=== PATIENT | male | born 1970 | race Caucasian/White ===

== ENCOUNTER 2021-02-19 08:22 | Outpatient (CLI) | payer OTHER, SELFPAY ==
--- NOTE | ~2021-02-19 | MM_ITS ---
EXAMINATION: MM screening sia BI w anais HISTORY: Screening mammogram TECHNIQUE: Craniocaudal and mediolateral oblique 3-D tomosynthesis images were obtained and synthetic 2-D images were generated. CAD analysis was submitted and interpreted. COMPARISON: No prior mammogram is available for comparison at this institution. BREAST PARENCHYMAL COMPOSITION: The breasts are heterogeneously dense, which may obscure small masses . FINDINGS: There is no evidence of suspicious mass, calcification, or architectural distortion to sugg est malignancy in either breast. IMPRESSION: 1. No mammographic evidence of malignancy. 2. Recommend routine screening mammography in one year. BI-RADS Category 1: Negative Reviewed, dictated and finalized at location [facility].
== END 2021-02-19 08:23 | disposition home or self-care (01) ==
LOC: ANHIMG 08:28
PROVIDERS: PCP Nurse Practitioner; Visit Provider Nurse Practitioner
DX: Z12.31 Encounter for screening mammogram for malignant neoplasm of breast (principal)
CPT/HCPCS: 77063; 77067

== ENCOUNTER 2023-05-13 12:50 | Emergency (ER) | payer SELFPAY ==
[2023-05-13 13:10] VITALS: BP 151/82; PULSE 84; RESP 18; TEMP 36.6; O2SAT 100
--- NOTE | 2023-05-13 14:13 | ED.GENADULT ---
HPI - General Adult General Chief complaint: Unspecified Stated complaint: uti symptoms Time Seen by Provider: 05/13/23 14:01 Source: patient and RN notes reviewed Mode of arrival: ambulatory Limitations: no limitations History of Present Illness HPI narrative: Patient presents today stating 4 days ago she woke up with nausea and diarrhea. Three days ago she developed right flank pain. Two days ago she developed dysuria that has persisted. History of kidney stones. She has tried ibuprofen with some relief. Related Data Allergies Allergy/AdvReac Type Severity Reaction Status Date / Time penicillin Allergy Mild Rash Uncoded 05/13/23 14:21 Review of Systems Review of Systems: CONSTITUTIONAL: Denies body aches, fever, chills, or sweats. EYES: Denies visual changes, redness, or discharge. ENT: Denies rhinorrhea, congestion, sore throat, or otalgia. CARDIOVASCULAR: Denies chest pain, palpitations, or edema. RESPIRATORY: Denies cough or dyspnea. GASTROINTESTINAL: Denies abdominal pain, vomiting.+ nausea, diarrhea GENITOURINARY: Denies hematuria.+ dysuria SKIN: Denies rash, itching, or wounds. MUSCULOSKELETAL: Denies back pain, joint pain, or myalgia. NEUROLOGIC: Denies headache, numbness, tingling, or weakness. PSYCH: Denies depression or anxiety. PMFSH Comments At time of signature, I have reviewed and agree with nursing past medical, surgical, social and family history unless otherwise noted. Please see nursing chart for further information. There is no relevant family history pertinent to the presenting complaint Exam Narrative: GENERAL: Well-appearing, well-nourished, and in no acute distress. HEAD: Normocephalic, atraumatic. EYES: EOMI. No redness or drainage. Conjunctivae normal. ENT: Mucous membranes pink and moist. NECK: Normal AROM. CHEST: No respiratory distress. Clear to auscultation. HEART: Regular rate and rhythm. No murmur appreciated. Normal peripheral pulses. ABDOMEN: Soft, nontender, nondistended, normal active bowel sounds. Mild right CVAT EXTREMITIES: Normal range of motion. No edema. SKIN: Warm, dry, no rash. Capillary refill normal. Normal skin turgor. NEURO: No focal deficits. Alert and oriented x3. Gait steady. PSYCH: Normal affect. No signs of depression or anxiety. Course Course Level of Care: Express Care Visit Vital Signs Vital signs: Vital Signs Temperature 97.9 F 05/13/23 13:10 Pulse Rate 84 05/13/23 13:10 Respiratory Rate 18 05/13/23 13:10 Blood Pressure 151/82 H 05/13/23 13:10 Pulse Oximetry 100 05/13/23 13:10 Oxygen Delivery Room Air 05/13/23 13:10 Temperature 97.9 F 05/13/23 13:10 Pulse Rate 84 05/13/23 13:10 Respiratory Rate 18 05/13/23 13:10 Blood Pressure 151/82 H 05/13/23 13:10 Pulse Oximetry 100 05/13/23 13:10 Oxygen Delivery Room Air 05/13/23 13:10 Reviewed. Pt has been instructed to follow up with her PCP regarding her elevated blood pressure today. Medical Decision Making MDM Narrative Medical decision making narrative: UA is inconclusive for UTI, however, patient's symptoms are compelling. Will treat with Keflex and send urine for culture. Anticipatory guidance given. Differential Diagnosis Differential Diagnosis: UTI, kidney stone, pyelonephritis Vital Signs Vital Signs: Vital Signs Temperature 97.9 F 05/13/23 13:10 Pulse Rate 84 05/13/23 13:10 Respiratory Rate 18 05/13/23 13:10 Blood Pressure 151/82 H 05/13/23 13:10 Pulse Oximetry 100 05/13/23 13:10 Oxygen Delivery Room Air 05/13/23 13:10 Temperature 97.9 F 05/13/23 13:10 Pulse Rate 84 05/13/23 13:10 Respiratory Rate 18 05/13/23 13:10 Blood Pressure 151/82 H 05/13/23 13:10 Pulse Oximetry 100 05/13/23 13:10 Oxygen Delivery Room Air 05/13/23 13:10 Lab Data Lab results reviewed: Yes I reviewed the patient's lab results. Labs: Urine Glucose Negative
== END 2023-05-13 14:25 | disposition home or self-care (01) ==
PROVIDERS: Emergency Provider Nurse Practitioner; PCP Nurse Practitioner
DX: R30.0 Dysuria (principal)
CPT/HCPCS: 81003; 87077; 87086; 87088; 99213; G0463

== ENCOUNTER 2025-02-26 09:25 | Outpatient (CLI) | payer OTHER, SELFPAY ==
--- NOTE | ~2025-02-26 | CT_ITS ---
Non-contrast CT scan of the Abdomen and Pelvis Clinical indication: Right inguinal pain Technique: 2.5 mm axial scans were obtained through the abdomen and pelvis without intravenous or or al contrast. Dose reduction technique was used on this scan by utilizing automated exposure control a nd iterative reconstruction technique. The dose-length product (DLP) was 692.79 mGy-cm. Findings: Images through the lung bases reveal no abnormalities. Multiple small bilateral nonobstructing renal stones are present, measuring to 3 mm. No ureteral ston e or hydronephrosis. The liver, spleen, pancreas, gallbladder, and adrenals appear normal. There is no aortic aneurysm. There is no evidence of bowel obstruction. Images through the pelvis were performed. There is no evidence of ascites or lymphadenopathy. Urinary bladder unremarkable. No pelvic mass seen. No ascites. Impression: Bilateral nonobstructing renal stones, as above. Reviewed, dictated and finalized at [facility]. Impression: Bilateral nonobstructing renal stones, as above.
== END 2025-02-26 09:26 | disposition home or self-care (01) ==
PROVIDERS: PCP Nurse Practitioner; Visit Provider Nurse Practitioner
DX: R10.31 Right lower quadrant pain (principal); N20.0 Calculus of kidney
CPT/HCPCS: 74176